=== PATIENT | male | born 2000 | race Caucasian/White ===

== ENCOUNTER 2020-08-11 17:12 | Emergency (ER) | payer OTHER ==
[~2020-08-11] VITALS: Ht 180.3 cm; Wt 61.4 kg
[2020-08-11 17:13] VITALS: TEMP 97.6
[2020-08-11] MEDS ORDERED: DIAMOX125 MG (17:29)
[2020-08-11] MEDS ORDERED: LAMICTAL CD5 MG PO (17:30)
[2020-08-11 18:05] LABS: ALBUMIN 5.8 gm/dL (3.5-5.0); ALKALINE PHOSPHATASE 77 U/L (50-136); AST,SGOT 48 U/L (15-37); BILIRUBIN,TOTAL 0.7 mg/dL (0.0-1.0); BLOOD UREA NITROGEN 12 mg/dL (9-20); CALCIUM 10.1 mg/dL (8.4-10.2); CHLORIDE 104 mmol/L (98-107); CREATININE, serum 1.35 (0.66-1.25); GLUCOSE 181 mg/dL (74-106); POTASSIUM 4.2 mmol/L (3.4-5.0); SODIUM 142 mmol/L (137-145); TOTAL PROTEIN 9.2 gm/dL (6.4-8.2)
[2020-08-11 18:11] LABS: ALANINE AMINOTRANSFERASE 25 U/L (4-49)
[2020-08-11 18:12] LABS: HEMATOCRIT 47.8 % (36.0-47.0); HEMOGLOBIN 15.8 g/dl (12.5-16.1); MEAN CELL VOLUME 92 fl (80.0-95.0); MEAN CORPUSCULAR HEMOGLOBIN 30 pg (26.0-32.0); MEAN CORPUSCULAR HGB CONC 33 g/dl (33.0-37.0); MEAN PLATELET VOLUME 10.3 fl (7.4-10.4); PLATELET COUNT 428 K/mm3 (130-400); REDCELL DISTRIBUTION WIDTH-CV 12.2 % (11.5-14.5)
[2020-08-11 18:20] LABS: CARBON DIOXIDE < 5 mmol/L (22-30)
[2020-08-11 18:32] LABS: COLLECTION METHOD CLEAN CATCH
[2020-08-11 18:39] LABS: MUCOUS Present /lpf; PH 6 (5-8); SQUAMOUS EPITHELIAL None Seen /hpf; URINE APPEARANCE Clear; URINE BACTERIA None Seen /hpf; URINE BILIRUBIN Negative (NEGATIVE); URINE BLOOD 1+ (NEGATIVE); URINE COLOR Yellow; URINE GLUCOSE Negative (NEGATIVE); URINE KETONE Negative (NEGATIVE); URINE LEUKOCYTE ESTERASE Negative (NEGATIVE); URINE NITRATE Negative (NEGATIVE); URINE PROTEIN(semi-quant) 2+ (NEGATIVE); URINE RBC 0-2 /hpf; URINE UROBILINOGEN Negative (NEGATIVE)
[2020-08-11 18:47] LABS: EOSINOPHIL 3 % (0-4); LYMPHOCYTE 52 % (20.0-51.0); NEUTROPHILS 41 % (42.0-75.2); PLATELET ESTIMATE INCREASED (NORMAL)
[2020-08-11 18:48] LABS: HYPOCHROMIA 1+
[2020-08-11 18:52] LABS: TRICYCLIC ANTIDEPRESS URINE NEGATIVE
[2020-08-11 19:11] VITALS: BP 125/83; PULSE 76
== END 2020-08-11 19:27 | disposition home or self-care (01) ==
LOC: COL.ER 17:12
PROVIDERS: Physician Assistant
DX: G40.909 Epilepsy, unspecified, not intractable, without status epilepticus (principal); E86.0 Dehydration; S00.81XA Abrasion of other part of head, initial encounter; F17.210 Nicotine dependence, cigarettes, uncomplicated; X58.XXXA Exposure to other specified factors, initial encounter; Y93.02 Activity, running; Y92.838 Other recreation area as the place of occurrence of the external cause
CPT/HCPCS: J7030